=== PATIENT | female | born 1975 | race Caucasian/White ===

== ENCOUNTER 2017-08-18 14:57 | Emergency (ER) | payer SELFPAY ==
[~2017-08-18] VITALS: Ht 175.3 cm; Wt 73.0 kg
[2017-08-18 15:06] VITALS: BP 160/94; PULSE 99; RESP 18; TEMP 99.4; O2SAT 98
--- NOTE | 2017-08-18 15:24 | PD ---
HPI Chief Complaint: Skin Problem Time Seen by Provider: 15:12 Travel History International Travel<30 days: No Contact w/Intl Traveler<30days: No Traveled to known affect area: No History of Present Illness HPI 41-year-old female who is deaf with interpretation through her friend, resents emergency department for evaluation of a splinter in her left second digit. Patient states she fell yesterday walking her dog and a splinter went into her left second digit as well as the palm of her hand. She was able to pull most of it out however some remains. She reports tenderness at the site. No fever chills. No discharge from the site. PFSH Past Medical History Medical History: Denies Significant Hx Social History Tobacco Use: No Allergies-Medications (Allergen,Severity, Reaction): Coded Allergies: No Known Allergies (Unverified , 08/18/17) Reported Meds & Prescriptions Reported Meds & Active Scripts Active Ibuprofen 800 Mg Tab 800 Mg PO Q8H PRN Keflex (Cephalexin) 500 Mg Cap 500 Mg PO Q6H 5 Days Bactrim DS (Sulfamethoxazole-Trimethoprim) 800-160 Mg Tab 1 Tab PO BID Review of Systems Except as stated in HPI: all other systems reviewed are Neg Physical Exam Narrative GENERAL: Well-nourished, well-developed female patient in no acute distress SKIN: Focused skin assessment warm/dry. Visible woodlike foreign body on the volar surface of the distal left second digit. Mild erythema surrounding it. There is another area on the palmar surface of the proximal hand that appears to have a would like foreign body sticking from it. HEAD: Normocephalic. EYES: No scleral icterus. No injection or drainage. NECK: Supple, trachea midline. No JVD or lymphadenopathy. CARDIOVASCULAR: Regular rate and rhythm without murmurs, gallops, or rubs. RESPIRATORY: Breath sounds equal bilaterally. No accessory muscle use. MUSCULOSKELETAL: No cyanosis, or edema. Patient has full flexion-extension of all the digits of the affected extremity. Cap refill within normal limits. Distal pulses are palpable. BACK: Nontender without obvious deformity. No CVA tenderness. Data Data Last Documented VS Vital Signs Date Time Temp Pulse Resp B/P (MAP) Pulse Ox O2 Delivery O2 Flow Rate FiO2 08/18/17 15:06 99.4 99 18 160/94 (116) 98 Orders Orders Ed Discharge Order (08/18/17 15:34) MDM Medical Decision Making Medical Screen Exam Complete: Yes Emergency Medical Condition: Yes Medical Record Reviewed: Yes Differential Diagnosis Foreign body versus cellulitis versus abscess Narrative Course 41-year-old female presents emergency department for evaluation of splinter in her left second digit in the palm of her hand. These are already partially visible and out of the skin. Alligator forceps are used to remove them without difficulty. Patient be started on oral antibiotics empirically and counseled on care. She agrees to return immediately with acute worsening symptoms. Procedures Procedure Narrative Visible would like foreign body in the distal aspect of the left second digit is removed using sterile alligator forceps with one attempt. Patient tolerated this well. Diagnosis Primary Impression: Splinter of finger without major open wound or infection Qualified Codes: S60.459A - Superficial foreign body of unspecified finger, initial encounter Referrals: Primary Care Physician Patient Instructions: Acute Wound Care (DC), General Instructions Additional Instructions: Epson salt soaks 3 times a day Elevate to reduce pain and swelling Follow-up the primary care provider Return immediately with acute worsening of symptoms Med/Other Pt SpecificInfo: Prescription(s) given Scripts Ibuprofen (Ibuprofen) 800 Mg Tab 800 MG PO Q8H Y for Pain/Inflammation, #30 TAB 0 Refills Prov: Cristy Glover 08/18/17 Cephalexin (Keflex) 500 Mg Cap 500 MG PO Q6H for Infection for 5 Days, #20 CAP 0 Refills Prov: Cristy Glover 08/18/17 Sulfamethoxazole-Trimethoprim (Bactrim DS) 800-160 Mg Tab 1 TAB PO BID for Infection, #20 TAB 0 Refills Prov: Cristy Glover 08/18/17 Disposition: 01 DISCHARGE HOME Condition: Stable Cristy Glover August 18, 2017 15:24
[2017-08-18] MEDS ORDERED: IBUP1TAB7 PO (15:36)
[2017-08-18] MEDS ORDERED: CEPH-460 PO (15:36)
[2017-08-18] MEDS ORDERED: BACT800T5 PO (15:36)
== END 2017-08-18 16:06 | disposition home or self-care (01) ==
LOC: NEPK 14:57
DX: S60.451A Superficial foreign body of left index finger, initial encounter (principal); Y93.K1 Activity, walking an animal
CPT/HCPCS: 99283